=== PATIENT | male | born 1945 | race Caucasian/White ===

== ENCOUNTER 2021-02-15 21:20 | Emergency (ER) | payer OTHER ==
[~2021-02-15] VITALS: Ht 182.9 cm; Wt 99.8 kg
[2021-02-15] MEDS ORDERED: FISH OIL 1,0001 EAC5 PO (21:55)
[2021-02-15] MEDS ORDERED: XARELTO20 MG PO (21:56)
[2021-02-15] MEDS ORDERED: TOPROL XL50 MG PO (21:56)
[2021-02-15] MEDS ORDERED: COZAAR50 MG PO (21:56)
[2021-02-15] MEDS ORDERED: CEPHALEXIN500 MG PO (23:48)
== END 2021-02-16 00:24 | disposition home or self-care (01) ==
LOC: ED 21:20
PROC: 0HQ1XZZ Repair Face Skin, External Approach (ICD-10-PCS; principal; 2021-02-15)
DX: S01.21XA Laceration without foreign body of nose, initial encounter (principal); I10 Essential (primary) hypertension; I48.91 Unspecified atrial fibrillation; Z23 Encounter for immunization; W22.8XXA Striking against or struck by other objects, initial encounter; Z79.899 Other long term (current) drug therapy
CPT/HCPCS: 12011; 90471; 90715; 99282